=== PATIENT | female | born 1990 | race Caucasian/White ===

== ENCOUNTER → 2016-12-19 | Outpatient (REF) | payer OTHER | LOC: M SFHCWAGY 12:07 | PROVIDERS: ATTEND Nurse Practitioner Family | DX: Z12.4 Encounter for screening for malignant neoplasm of cervix (principal); R87.610 Atypical squamous cells of undetermined significance on cytologic smear of cervix (ASC-US) ==

== ENCOUNTER → 2017-01-26 | Outpatient (CLI) | payer OTHER | LOC: M WUC 18:16 | PROVIDERS: ATTEND Nurse Practitioner Family | DX: E04.9 Nontoxic goiter, unspecified (principal) ==

== ENCOUNTER → 2019-04-15 | Outpatient (REF) | payer OTHER | LOC: M SFHCWAGY 14:05 | PROVIDERS: ATTEND Nurse Practitioner Women's Health | DX: Z12.4 Encounter for screening for malignant neoplasm of cervix (principal) ==

== ENCOUNTER → 2019-09-16 | Outpatient (CLI) | payer OTHER ==
--- NOTE | 2019-09-16 12:56 | REP ---
PELVIC SONOGRAPHY: HISTORY: Infertility management. FINDINGS: Transabdominal and endovaginal scanning are performed. Uterus is retroverted, normal in size measuring 7.3 x 3.5 x 5.9 cm. Endometrial echo is 0.7 cm thick. No focal uterine mass is seen. No significant free fluid is noted. Right ovary dimensions are 3.3 x 2.6 x 2.2 cm. There is a 2.9 x 2.0 x 2.2 cm septated cystic area in the right ovary. There is Doppler flow in the right ovary. The left ovary measures 3.0 x 1.8 x 2.0 cm. There is a 1.8 x 1.7 x 1.5 cm follicle cyst in the left ovary. Blood flow is present in the left ovary as well by Doppler. IMPRESSION: Small bilateral ovarian cysts, one on each side, consistent with follicle cysts. Retroverted uterus. Otherwise negative.
== END ==
LOC: M WHC 11:37
PROVIDERS: ATTEND Nurse Practitioner Women's Health
DX: Z31.9 Encounter for procreative management, unspecified (principal)

== ENCOUNTER → 2022-11-28 | Outpatient (REF) | payer BC | LOC: M SFHCWAGY 17:08 | PROVIDERS: ATTEND Nurse Practitioner Family | DX: Z12.4 Encounter for screening for malignant neoplasm of cervix (principal); Z01.419 Encounter for gynecological examination (general) (routine) without abnormal findings; Z77.9 Other contact with and (suspected) exposures hazardous to health ==

== ENCOUNTER → 2023-05-20 | Outpatient (CLI) | payer OTHER | LOC: M RAD 16:36 | PROVIDERS: ATTEND Nurse Practitioner Family | DX: E04.1 Nontoxic single thyroid nodule (principal) ==

== ENCOUNTER → 2023-09-21 | Outpatient (CLI) | payer OTHER | LOC: M RAD 14:38 | PROVIDERS: ATTEND Obstetrics & Gynecology Reproductive Endocrinology | DX: N97.9 Female infertility, unspecified (principal) ==

== ENCOUNTER → 2023-10-02 | Outpatient (CLI) | payer OTHER | LOC: M RAD 15:06 | PROVIDERS: ATTEND Obstetrics & Gynecology Reproductive Endocrinology | DX: O09.819 Supervision of pregnancy resulting from assisted reproductive technology, unspecified trimester (principal) ==

== ENCOUNTER → 2023-10-12 | Outpatient (CLI) | payer OTHER | LOC: M RAD 12:21 | PROVIDERS: ATTEND Obstetrics & Gynecology Reproductive Endocrinology | DX: N97.9 Female infertility, unspecified (principal) ==

== ENCOUNTER → 2023-10-14 | Outpatient (CLI) | payer OTHER | LOC: M RAD 07:41 | PROVIDERS: ATTEND Obstetrics & Gynecology Reproductive Endocrinology | DX: O09.01 Supervision of pregnancy with history of infertility, first trimester (principal) ==

== ENCOUNTER → 2023-10-16 | Outpatient (CLI) | payer OTHER ==
[2023-10-16 16:07] LABS: ESTRADIOL 489.3 PG/ML; FOLLICLE STIMULATING HORMONE 27.6 mIU/ML; LUTEINIZING HORMONE 23.2 mIU/ML; PROGESTERONE 1.91 NG/ML
== END ==
LOC: M LAB 15:14
PROVIDERS: ATTEND Obstetrics & Gynecology Reproductive Endocrinology
DX: N97.9 Female infertility, unspecified (principal)

== ENCOUNTER → 2024-02-16 | Outpatient (CLI) | payer OTHER | LOC: M RAD 09:47 | PROVIDERS: ATTEND Obstetrics & Gynecology Reproductive Endocrinology | DX: Z31.83 Encounter for assisted reproductive fertility procedure cycle (principal) ==